=== PATIENT | female | born 1980 | race Caucasian/White ===

== ENCOUNTER 2016-08-12 06:19 | Emergency (ER) | payer SELFPAY ==
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
[2016-08-12 07:44] LABS: ABSOLUTE BASOPHIL COUNT 0 /CUMM (0.0-0.2); ABSOLUTE EOSINOPHIL COUNT 0.1 /CUMM (0.0-0.7); ABSOLUTE GRANULOCYTE CT 4.2 /CUMM (1.4-6.5); ABSOLUTE LYMPH COUNT 1.1 /CUMM (1.2-3.4); ABSOLUTE MONOCYTE COUNT 0.4 /CUMM (0.10-0.60); BASOPHIL % 0.3 % (0.0-2.0); EOSINOPHIL % 1.2 % (0-5); GRANULOCYTE % 72.6 % (42.2-75.2); HEMATOCRIT 37.5 % (37-47); MEAN CORPUSCULAR HGB 31.5 PG (27.0-31.0); MEAN CORPUSCULAR VOLUME 92.4 FL (81.0-99.0); MEAN PLATELET VOLUME 6.2 FL (7.4-10.4); PLATELET COUNT 317 /CUMM (130-400); RBC DISTRIBUTION WIDTH 13.3 % (11.5-14.5); RED BLOOD CELL CT 4.06 /CUMM (4.20-5.40); WHITE BLOOD CELL COUNT 5.7 /CUMM (4.8-10.8)
--- NOTE | 2016-08-12 09:31 | CT SCAN REPORT ---
EXAMINATION: CT CHEST, ABDOMEN AND PELVIS WITHOUT CONTRAST CLINICAL INFORMATION: Presumptive diagnosis: left lower rib cage pain. Mid epigastric and upper abdominal pain. COMPARISON: No pertinent prior studies are available for comparison. TECHNIQUE: Multidetector volumetric imaging was performed from the thoracic inlet through the pubic symphysis without intravenous contrast. Sagittal and coronal reformatted images were obtained on the technologist's workstation. DOSE: 347 mGy-cm FINDINGS: -CHEST- LUNG: The lungs are clear without focal opacity or nodule. MEDIASTINUM: Multiple subcentimeter mediastinal lymph nodes are present, within normal limits by size criteria. Heart is normal in size. No pericardial effusion. Thoracic aorta is normal in caliber without calcific atherosclerotic changes. PERICARDIUM/PLEURA: No significant effusion. No pleural mass or thickening. CHEST WALL/AXILLA: Unremarkable. -ABDOMEN/PELVIS- LIVER, GALLBLADDER, BILIARY TREE: The liver is normal in size, shape, and attenuation. No focal hepatic lesion or biliary ductal dilatation is present. The gallbladder is unremarkable with no evidence of radiopaque gallstones, gallbladder wall thickening, or obvious pericholecystic inflammatory changes. PANCREAS: Unremarkable. SPLEEN: Unremarkable. ADRENAL GLANDS: Unremarkable. KIDNEYS AND URETERS: The kidneys are normal in size, shape, and attenuation. No hydronephrosis, hydroureter, or calculi seen. No perinephric stranding. BLADDER: Unremarkable. GASTROINTESTINAL TRACT: Stomach, small bowel, and colon are normal in caliber. No appreciable bowel wall thickening or surrounding inflammatory changes are identified. Appendix is not identified. There is peritoneal free fluid or free air. There is a moderate to large volume of stool throughout the colon. ABDOMINAL WALL: No significant hernia is appreciated. LYMPHOVASCULAR STRUCTURES: No lymphadenopathy. The aorta is unremarkable.. PELVIC VISCERA: The uterus and adnexa are unremarkable. OSSEUS STRUCTURES: Superior endplate compression deformities at T11 and T8 are chronic in appearance with approximately 75 percent loss of anterior vertebral body height at both levels. Schmorl's nodes are present at both levels as well. No rib fractures are identified. Sternum is intact. Mild degenerative arthritis is present in the SI joints. IMPRESSION: 1. No acute abnormalities identified in the chest, abdomen, and pelvis. Ribs are intact. 2. Moderate to large volume of stool throughout the colon. 3. Old superior endplate compression fractures at T8 and T11. No acute fractures are identified.
[2016-08-12] MEDS ORDERED: DILAUDID2 M1 PO ×2 (09:50→10:06)
[2016-08-12 10:36] VITALS: BP 136/77
== END 2016-08-12 10:37 ==
LOC: ERH 06:19
PROVIDERS: Pediatrics
DX: T14.8 Other injury of unspecified body region (principal); R07.81 Pleurodynia; W10.9XXA Fall (on) (from) unspecified stairs and steps, initial encounter; Y93.9 Activity, unspecified; Y92.9 Unspecified place or not applicable
CPT/HCPCS: 74176; 93005; 93010; 96374; 96376